=== PATIENT | male | born 1955 | race Caucasian/White ===

== ENCOUNTER 2024-06-18 09:04 | Emergency (ER) | payer OTHER ==
[~2024-06-18] VITALS: Ht 193 cm; Wt 95.3 kg
[2024-06-18] MEDS ORDERED: SODIUM CHLORIDE 0.9% 1,000 ML IV ONE (09:10)
[2024-06-18] MEDS ORDERED: SINEMET 25-1001 EACH PO (09:31)
[2024-06-18] MEDS ORDERED: MIDODRINE HCL5 M1 PO (09:31)
[2024-06-18 09:35] LABS: BASO % 0.5 % (0.0-1.0); EOS # 0.1 10*3/uL (0.0-0.4); EOS % 1.5 % (1.0-4.0); HEMATOCRIT 37.4 % (42.0-52.0); MEAN CELL VOLUME 91.7 fl (80.0-94.0); MEAN CORPUSCULAR HGB 29.7 pg (27.0-31.0); MEAN CORPUSCULAR HGB CONC 32.4 g/dl (33.0-37.0); MEAN PLATELET VOLUME 8.9 fl (9.6-12.3); MONO # 0.4 10*3/uL (0.1-1.0); MONO % 6.8 % (3.0-9.0); NEUT # 4.4 10*3/uL (2.3-7.9); NEUT % 74.5 % (47.0-73.0); PLATELET COUNT AUTOMATED 219 10*3/uL (130-400); RED BLOOD COUNT 4.08 10*6/uL (4.50-5.90); RED CELL DISTRI WIDTH 13.3 % (0-14.5); WHITE BLOOD COUNT 5.9 10*3/uL (4.8-10.8)
[2024-06-18 09:55] LABS: BUN 29 mg/dl (9-23); CHLORIDE 103 mmol/L (98-107); POTASSIUM 3.3 mmol/L (3.4-5.1)
[2024-06-18] MEDS ORDERED: POTASSIUM CHLORIDE 20 MEQ TAB PO ONE (10:05)
== END 2024-06-18 11:13 | disposition home or self-care (01) ==
LOC: ED 09:04
PROVIDERS: Emergency Medicine
DX: R55 Syncope and collapse (principal); I10 Essential (primary) hypertension; E78.5 Hyperlipidemia, unspecified